=== PATIENT | male | born 1945 | race Caucasian/White ===

== ENCOUNTER 2020-02-18 19:34 | Inpatient (IN) | payer MEDICARE, OTHER ==
[2020-02-18] MEDS ORDERED: Ketorolac Tromethamine 30 MG/ML VIAL IVP PRN (21:44)
[2020-02-18] MEDS ORDERED: HumaLOG 300 UNITS/3 ML VIAL SC PRN ×2 (21:44)
[2020-02-18] MEDS ORDERED: Dextrose 5% in Water 1,000 ML IV PRN (21:44)
[2020-02-18] MEDS ORDERED: Ondansetron PF 4 MG/2 ML Vial IVP PRN (21:44)
[2020-02-18] MEDS ORDERED: Dextrose 50% Abboject 50 ML SYRINGE SLOW IVP PRN (21:44)
[2020-02-18] MEDS ORDERED: Labetalol HCl 100 MG/20 ML VIAL SLOW IVP PRN (21:44)
[2020-02-18] MEDS ORDERED: Acetaminophen 500 MG TAB PO PRN (21:44)
[2020-02-18] MEDS ORDERED: Bisacodyl 5 MG TAB PO PRN (21:44)
[2020-02-18] MEDS ORDERED: Ondansetron ODT 4 MG TAB PO PRN (21:44)
[2020-02-18] MEDS ORDERED: Senokot S 8.6-50 MG TAB PO PRN (21:44)
--- NOTE | 2020-02-18 22:43 | HP ---
PRIMARY CARE PROVIDER: Dr. Lazarus Momin in [place], [place], [facility]. CHIEF COMPLAINT: Abdominal pain. HISTORY OF PRESENT ILLNESS: This is a 74-year-old male, who presents to [facility] Emergency Department and transferred from [facility], where the patient was initially evaluated for 1-1/2 days of increasing abdominal distention mainly localizing to the left lower quadrant. The history is obtained after review of the electronic medical record in the emergency room as the patient is a poor historian and unable to provide a coherent history. The patient denied any specific dysuria or hematuria. The patient denied associated nausea, vomiting, or change to bowel habits. No prior history of surgical intervention. No change to appetite, unintentional weight loss, travel history, recent trauma injury, or family members with similar symptoms. The patient denied taking any home remedies for relief. The patient does admit recent bowel movements, but were not "normal bowel movements for him." In the emergency room, the patient underwent general evaluation including plain radiographic imaging of the abdomen in addition to CT of the abdomen and pelvis showing a distal left ureteral stone approximately 7 mm with obstructive uropathy. The patient was given IV fluids in addition to Zofran and Zosyn. Initial attempts were to transfer the patient to a hospital in [place] closer to his family and primary care provider. However, the receiving hospital did not have Urology Service. The patient was transferred to [facility] for further evaluation and neurological consultation. PAST MEDICAL HISTORY: 1. Diabetes mellitus type 2. 2. Parkinson disease with questionable dementia. 3. Hypertension. 4. Hyperlipidemia. PAST SURGICAL HISTORY: Status post bilateral tympanostomy. CURRENT MEDICATIONS: 1. Amlodipine 10 mg p.o. daily. 2. Glipizide 10 mg p.o. b.i.d. 3. Lisinopril 10 mg p.o. daily. 4. Metformin 1000 mg p.o. b.i.d. 5. Zocor 20 mg p.o. at bedtime. ALLERGIES: NO KNOWN DRUG ALLERGIES. FAMILY HISTORY: No inheritable diseases per family report. SOCIAL HISTORY: Resides in [place], [place]. . No current alcohol, tobacco, or illicit drug use. Limited mobility due to Parkinson disease. REVIEW OF SYSTEMS: CONSTITUTIONAL: Negative for weight loss or gain, ability to conduct usual activities. SKIN: Negative for rash, itching. EYES: Negative for double vision, pain. ENT/MOUTH: Negative for nose bleeding, neck stiffness, pain, tenderness. CARDIOVASCULAR: Negative for palpitations, dyspnea on exertion, orthopnea. RESPIRATORY: Negative for shortness of breath, wheezing, cough, hemoptysis, fever or night sweats. GASTROINTESTINAL: Negative for poor appetite, abdominal pain, heartburn, nausea, vomiting, constipation, or diarrhea. GENITOURINARY: Negative for urgency, frequency, dysuria, nocturia. MUSCULOSKELETAL: Negative for pain, swelling. NEUROLOGIC/PSYCHIATRIC: Negative for anxiety, depression. ALLERGY/IMMUNOLOGIC: Negative for skin rash, bleeding tendency. Otherwise, negative except as stated per HPI. PHYSICAL EXAMINATION: VITAL SIGNS: Blood pressure 135/71, pulse 89, respiratory rate 18, temperature 98.3 degrees Fahrenheit, O2 saturation 94% on room air. GENERAL APPEARANCE: This is a 74-year-old male, alert and responsive, in no acute distress. HEENT: Pupils are equal, round, reactive to light and accommodation. Extraocular muscles are intact. No scleral icterus. No conjunctival injection. Nares patent. OP is clear. Oral mucosa dry. NECK: Supple. No cervical adenopathy. No thyromegaly. No carotid bruits. No JVD appreciated. Cervical spine with full active and passive range of motion. No meningeal signs noted. CHEST: Lungs are clear to auscultation bilaterally. CARDIOVASCULAR: S1 and S2 without noted murmur, rub, or gallop. ABDOMEN: Obese with mild tenderness to palpation in the left lower quadrant and CVA distribution on the left. No rebound or guarding noted. No rigidity. EXTREMITIES: Warm and dry with fair turgor. No clubbing, cyanosis, or asymmetric edema appreciated. Pulses palpable distally at the dorsalis pedis, posterior tibial, and popliteal arteries bilaterally. Capillary refill less than 2 seconds. NEUROLOGIC: Resting tremor to bilateral upper extremities. Mild cogwheel rigidity of the elbows and wrists. Not observed ambulatory during this exam. Flat facies. PERTINENT LABORATORY AND X-RAY FINDINGS: Sodium 126, potassium 4.5, chloride 91, CO2 of 21, BUN 20, creatinine 1.26, estimated GFR 56, glucose 254, lactic acid level 1.7. LFTs within normal limits. Lipase 33. CBC showed a white blood cell count of 18, hemoglobin 15, hematocrit 44, platelet count 238 with 77% neutrophils. Urinalysis positive for glucose and small amount of blood. KUB of the abdomen dated 02/18/2020 showed a 7 x 3 mm calcification in the left hemipelvis. Left nephrolithiasis noted. Bowel gas pattern normal. Portable chest x-ray dated 02/18/2020, showed no acute cardiopulmonary process. CT of the abdomen and pelvis dated 02/18/2020, showed 7 mm calculus in the distal left ureter near the ureterovesical junction with obstructive uropathy and mild left hydroureteronephrosis. ASSESSMENT AND PLAN: 1. Left distal ureterovesical junction lithiasis. The patient will be admitted to the medical floor. We will continue intravenous normal saline at 125 mL/h. Continue Rocephin 2 g IV q.24 hours. Urine culture pending. Start Flomax 0.4 mg at bedtime. Consult Urology Service in the a.m. for any further recommendations and consideration for cystoscopy. 2. Obstructive uropathy with left-sided hydroureteronephrosis. Continue IV fluids as outlined previously. Serial creatinine monitoring. Flomax 0.4 mg p.o. at bedtime. 3. Diabetes mellitus type 2. Insulin sliding scale for reflexive coverage. Serial Accu-Cheks before meals and at bedtime. Confirm home diabetic regimen. ADA diet. 4. Hypertension. Resume home blood pressure regimen and monitor clinical response. 5. Chronic kidney disease stage 3. Continue IV fluids as outlined previously. Avoid nephrotoxic agents. Limit contrast exposure. Serial creatinine monitoring. 6. Prophylaxis. SCDs while in bed. Pepcid 20 mg p.o. b.i.d. PT evaluation for functional assessment. 7. Code status is full. Surrogate medical decision maker is the patient's spouse. Job ID: [id number] [facility]
[2020-02-18] MEDS: cefTRIAXone\\ROCEPHIN 2 GM in Sodium Chloride 0.9% 100 ML IVPB SCH (22:51)
[2020-02-18] MEDS: Sodium Chloride 0.9% 1,000 ML IV SCH (22:51)
[2020-02-19 05:52] LABS: #Eosinphils 0.1 thou/uL (0.0-0.7); #Lymphocytes 2.1 thou/uL (1.20-3.40); #Neutrophils 6.6 thou/uL (1.40-6.50); %Basophils 0.1 % (0.0-1.0); %Eosinophils 0.8 % (0.0-10.0); %Lymphocytes 21.5 % (21.0-51.0); %Monocytes 9.8 % (0.0-10.0); %Neutrophils 67.9 % (42.0-75.0); Hemoglobin 13.3 g/dL (14.0-18.0); Mean Corpuscular HGB CONC 34.6 g/dL (32.0-36.0); Mean Corpuscular Hemoglobin 32.2 pg (27.0-31.0); Mean Platelet Volume 7.2 fL (7.4-10.4); Platelet Count 159 thou/uL (130-400); RBC Distribution Width 12.7 % (11.5-14.5); Red Blood Cell (RBC) Count 4.14 mill/uL (4.70-6.10); White Blood Cell (WBC) Count 9.8 thou/uL (4.8-10.8)
[2020-02-19 06:16] LABS: Anion Gap 13 mmol/L (10-20); BUN (Urea Nitrogen) 15 mg/dL (8.4-25.7); Calc. Creatinine Clearance 64 mL/min (70-130); Calcium 7.8 mg/dL (7.8-10.44); Carbon Dioxide 18 mmol/L (23-31); Chloride 107 mmol/L (98-107); Estimated GFR-MDRD 67; Glucose 111 mg/dL (83-110); Potassium 3.9 mmol/L (3.5-5.1); Sodium 134 mmol/L (136-145)
[2020-02-19] MEDS: Sodium Chloride 0.9% 1,000 ML IV SCH ×3 (06:21→21:59)
--- NOTE | 2020-02-19 06:33 | CON ---
DATE OF CONSULTATION: 02/19/2020 REQUESTING PHYSICIAN: Shane Ramos MD REASON FOR CONSULTATION: Left ureteral stone. HISTORY OF PRESENT ILLNESS: Mr. Abdullahi is a 74-year-old male, who presented to [facility] Department as a transfer from [place] [facility], where the patient was seen for increasing pain and abdominal distention over the past one and a half days. The patient is a poor historian. The majority of the history is obtained from the chart. The patient began developing abdominal pain over the past couple of days. A CT of the abdomen and pelvis was performed in [place], which demonstrates a 7 mm distal left ureteral calculus with left hydroureteronephrosis as well as a distended bladder. The [place] emergency department evidently spoke with his family in the [place] area and they tried to transfer the patient there but given the fact that there was no urologic coverage there, he was transferred to [place] and admitted by the Medicine Service. Currently, the patient states his pain is controlled. He denies any fever. No prior episodes of urolithiasis. He has no other complaints. PAST MEDICAL HISTORY: 1. Type 2 diabetes. 2. Parkinson with questionable dementia. 3. Hypertension. 4. Hyperlipidemia. PAST SURGICAL HISTORY: Ear tubes. FAMILY HISTORY: Noncontributory. SOCIAL HISTORY: Lives in [place], [place]. He is . No alcohol, tobacco, or illicit drugs. ALLERGIES: NO KNOWN DRUG ALLERGIES. REVIEW OF SYSTEMS: This was performed, however, accuracy is questionable. He declines everything. PHYSICAL EXAMINATION: VITAL SIGNS: Blood pressure 135/68, pulse 87, respirations 16, temperature 98.3, oxygen saturation 94% on room air. GENERAL: He is alert and oriented, in no apparent distress. HEENT: Normocephalic, atraumatic. NECK: Supple. No masses or lymphadenopathy. CARDIOVASCULAR: Regular rate and rhythm. PULMONARY: Breathing unlabored. ABDOMEN: Soft, mild suprapubic tenderness to palpation and left lower quadrant tenderness to palpation. No rebound or guarding. No masses or organomegaly. EXTREMITIES: Warm and well perfused. No edema. NEUROLOGIC: Resting tremor in bilateral upper extremities. Flat affect. LABORATORY DATA: Sodium 126, potassium 4.5, chloride 91, bicarb 21, BUN 20, creatinine 1.26. Lactate 1.7. White blood cell count 18, hemoglobin 15, hematocrit 44, platelet 238. RADIOLOGY DATA: CT of the abdomen and pelvis demonstrated a 7 mm distal left ureteral stone with left hydroureteronephrosis as well as a distended bladder. ASSESSMENT: A 74-year-old male with left-sided abdominal pain secondary to a 7 mm distal left ureteral stone with left hydroureteronephrosis and questionable incomplete bladder emptying/urinary retention. PLAN: I reviewed the natural history and clinical implications of ureteral stones with the patient in detail. I explained his approximate 50% chance of spontaneously passing a stone of this size. The patient had significant pain. He is a poor historian. He had a very distended bladder on CT scan and the question of chronic incomplete bladder emptying, likely secondary to bladder outlet obstruction is in question. The patient denies any bothersome lower urinary tract symptoms, although again he is a poor historian. After indications/risks/benefits/alternatives/possible outcomes were discussed with the patient in detail, he elects to proceed with a left ureteral stent placement and all indicated procedures. If the patient has an overly distended bladder at the time of this procedure, a Veloz catheter will be placed and should likely remain in place until he can have further workup of this. N.p.o. until this procedure can be performed later today. Job ID: [id number]
[2020-02-19] MEDS: Famotidine 20 MG TAB PO SCH ×2 (07:50→19:56)
[2020-02-19] MEDS ORDERED: PROPOFOL 200 MG/20 ML VIAL ONE (09:23)
[2020-02-19] MEDS ORDERED: Ondansetron PF 4 MG/2 ML Vial ONE (09:23)
[2020-02-19] MEDS ORDERED: EPHEDRINE 25 MG/5 ML SYRINGE ONE (09:23)
[2020-02-19] MEDS ORDERED: Lidocaine 1% PF 5 ML VIAL ONE (09:23)
[2020-02-19 12:23] LABS: SARS-CoV-2 MS2 Positive; SARS-CoV-2 N Gene Negative; SARS-CoV-2 S Gene Negative; SARS-CoV-2 by NAA Not Detected (NotDetected); SARS-CoV-2 orf1ab Negative
[2020-02-19] MEDS ORDERED: Iothalamate Meglumine 60% 50 ML VIAL FS ONE (16:41)
[2020-02-19] MEDS ORDERED: Fentanyl 100 MCG/2 ML VIAL ONE (16:46)
[2020-02-19] MEDS ORDERED: Promethazine HCl 25 MG/ML VIAL IM PRN (17:09)
[2020-02-19] MEDS ORDERED: Ondansetron HCl/PF 4 MG/2 ML Vial IVP PRN (17:09)
[2020-02-19] MEDS ORDERED: Promethazine HCl 25 MG/ML VIAL SLOW IVP PRN (17:09)
--- NOTE | 2020-02-19 18:00 | RAD ---
Radiograph intravenous urogram 5 views: 02/19/2020 HISTORY: 74-year-old male with left obstructive uropathy due to far distal left ureteral calculus. COMPARISON: KUB of 02/18/2020 FINDINGS: Pig Machine Crane Operator view demonstrates again a 7 mm calculus in the left hemipelvis in the far left distal ureter. T here is also an approximately 7 mm calculus in the left upper quadrant consistent with renal calculus. Subsequently, there is catheterization and wire placement up the ureter with wire in left u pper pole calyx. Next, contrast injection fills nondilated left renal collecting system. Next, manipulation of wire. Next, a double pigtail left ureteral stent is visualized. No residual contrast in the collecting system. IMPRESSION: 1.) Ureterolithiasis consisting of distal left ureteral calculus, near ureterovesical junction. 2) nephrolithiasis consisting of left renal calculus. 3) interval placement of left ureteral stent.
--- NOTE | 2020-02-19 18:19 | PDOC.EVN ---
Event Note - Event Note Event Note: Patient was in Surgery when I made rounds to see him. Vital signs have been stable, and no concerns from the nursing staff.
[2020-02-19] MEDS ORDERED: Tamsulosin HCl 0.4 MG CAP PO SCH (21:00)
[2020-02-19] MEDS: cefTRIAXone\\ROCEPHIN 2 GM in Sodium Chloride 0.9% 100 ML IVPB SCH (21:59)
[2020-02-20] MEDS: Sodium Chloride 0.9% 1,000 ML IV SCH ×2 (06:00→14:39)
--- NOTE | 2020-02-20 06:09 | PRG ---
DATE OF SERVICE: 02/20/2020 SUBJECTIVE: The patient is feeling well. His lower back and left abdominal pain have resolved, status post left ureteral stent placement. No nausea or vomiting. No complaints. OBJECTIVE: VITAL SIGNS: Temperature 98.2, pulse 83, respirations 18, ox saturation 93% on room air, blood pressure 116/61. GENERAL: He is awake and alert. No apparent distress. CARDIOVASCULAR: Regular rhythm. PULMONARY: Breathing unlabored. ABDOMEN: Soft, nontender/nondistended. No masses or organomegaly. No suprapubic tenderness to palpation. No CVA tenderness. EXTREMITIES: Warm, well perfused. No edema. NEUROLOGIC: No focal deficits. ASSESSMENT: A 74-year-old male with a left ureteral stone. Postoperative day #1 status post left ureteral stent placement. PLAN: The patient's pain has improved from a urologic standpoint. He can be discharged home once stable medically. He will be scheduled as an outpatient for definitive management of this stone by ureteroscopy with laser lithotripsy. Job ID: [id number]
[2020-02-20] MEDS: Famotidine 20 MG TAB PO SCH (08:13)
--- NOTE | 2020-02-20 08:13 | OP ---
DATE OF PROCEDURE: 02/19/2020 GRADUATE STUDENT INSTRUCTOR: None. PREPROCEDURE DIAGNOSES: 1. Left ureteral stone. 2. Left hydroureteronephrosis. POSTPROCEDURE DIAGNOSES: 1. Left ureteral stone. 2. Left hydroureteronephrosis. PROCEDURE: Cystoscopy with placement of 6-Lithuanian x 26 cm double-J left ureteral stent. ANESTHESIA: LMA anesthesia. COMPLICATIONS: None. FLUIDS: See Anesthesia record. BLOOD LOSS: Minimal. SPECIMENS: None. POSTPROCEDURE STATUS: Satisfactory. INDICATIONS FOR PROCEDURE: Mr. Abdullahi is a 74-year-old male, who presented with 3-day history of worsening lower and left abdominal pain. The patient has a 7 mm distal left ureteral calculus with significant left hydroureteronephrosis and left perinephric stranding. After indications/risks/benefits/alternatives/possible outcomes were discussed with the patient's family, they elected to proceed with left ureteral stent placement and all indicated procedures. DESCRIPTION OF PROCEDURE: The patient was taken to the operating room and after successful induction of LMA anesthesia, he was placed in the dorsal lithotomy position. His genitalia were prepped and draped in usual sterile fashion. A time-out was performed,. following which a 21-Lithuanian rigid cystourethroscope was inserted in the patient's urethra, advanced into the bladder. Urethra was normal. He had bilobar enlargement of his prostate. Bladder mucosa was normal. Had minimal trabeculation. Ureteral orifices were in the normal orthotopic location. Left ureteral orifice was identified. It was cannulated with a 5-Lithuanian open-ended ureteral catheter with a 0.035 inch angled tip Glidewire placed through it. We cannulated the left ureteral orifice and advanced the wire all the way up into the left renal pelvis. The stone could be seen fluoroscopically within the distal portion of the ureter. There was also a nonobstructing left ureteral stone. The open-ended catheter was placed up to the level of the left ureteropelvic junction and the wire was removed. Retrograde pyelogram was performed with a 50:50 mix of [place] and sterile water and this demonstrated [id number] left hydroureteronephrosis. We replaced the wire and removed the open-ended catheter. Over the wire, a 6-Lithuanian x 26 cm double-J ureteral stent was placed. Upon wire removal, a good curl was achieved proximally within the left renal pelvis and distally within the bladder. The patient's bladder was drained. He tolerated the procedure well, was awoken from anesthesia and transferred to the PACU in satisfactory condition. PLAN: Left ureteral stent has been placed. The patient will require definitive management of this stone. This will be scheduled as an outpatient. From urologic standpoint, once the patient's other medical issues have resolved, he can be discharged home and have followup scheduled with Urology. Job ID: [id number]
--- NOTE | 2020-02-20 12:21 | PDOC.HOSPP ---
- Subjective Encounter Date: 02/20/20 Encounter Time: 12:19 Subjective: Mr. Abdullahi was seen today in follow-up of nephrolithiasis, and obstructive uropathy. He does not have any complaints this morning. He denies abdominal or flank pain. - Objective Vital Signs & Weight: Vital Signs (12 hours) Temp Pulse Resp BP Pulse Ox 02/20/20 08:15 94 L 02/20/20 07:41 98.2 F 70 18 121/69 94 L 02/20/20 04:00 98.2 F 83 20 116/61 93 L Weight Weight 171 lb 14.4 oz I&O: 02/19/20 02/20/20 02/21/20 06:59 06:59 06:59 Intake Total 1000 1720 Output Total 1100 950 Balance -100 770 Result Diagrams: 02/19/20 05:35 02/19/20 05:35 Additional Labs: Accuchecks 02/20/20 02/19/20 02/19/20 04:10 20:34 15:35 POC Glucose 150 H 125 H 107 H 02/18/20 21:15 POC Glucose 222 H Hospitalist ROS - Medication Medications: Active Medications Generic Name Dose Route Start Last Admin Trade Name Freq PRN Reason Stop Dose Admin Famotidine 20 mg 02/19/20 09:00 02/20/20 08:13 Famotidine 20 Mg Tab PO 20 mg BID ALISSA Administration Sodium Chloride 1,000 mls @ 125 mls/hr 02/18/20 22:00 02/20/20 06:00 Normal Saline 0.9% IV 1,000 mls .Q8H ALISSA Administration Ceftriaxone Sodium 2 gm/ 100 mls @ 200 mls/hr 02/18/20 22:00 02/19/20 21:59 Sodium Chloride IVPB 100 mls 2200 ALISSA Administration Insulin Human Lispro 0 units 02/18/20 21:44 02/18/20 22:52 Humalog 300 Units/3 Ml Vial SC 2 unit .BEDTIME SLIDING SC PRN Administration Bedtime Correctional Scale Tamsulosin HCl 0.4 mg 02/19/20 21:00 02/19/20 19:56 Tamsulosin Hcl 0.4 Mg Cap PO 0.4 mg HS ALISSA Administration - Exam Eye: PERRL, anicteric sclera Heart: RRR, no murmur, no gallops, no rubs, normal peripheral pulses Respiratory: CTAB, no wheezes, no rales, no ronchi, normal chest expansion, no tachypnea Gastrointestinal: soft, non-tender, non-distended, normal bowel sounds, no palpable masses, no hepatomegaly Extremities: no cyanosis, no edema Hosp A/P (1) Left nephrolithiasis Code(s): N20.0 - CALCULUS OF KIDNEY Status: Acute (2) Obstructive uropathy Code(s): N13.9 - OBSTRUCTIVE AND REFLUX UROPATHY, UNSPECIFIED Status: Acute (3) Hypertension Code(s): I10 - ESSENTIAL (PRIMARY) HYPERTENSION Status: Chronic (4) Diabetes mellitus type 2 in nonobese Code(s): E11.9 - TYPE 2 DIABETES MELLITUS WITHOUT COMPLICATIONS Status: Chroni c - Plan * Nephrolithiasis with Obstructvie Uropathy- He is s/p ureteral STENT placement * He has been cleared for discharge * HTN- blood pressure is stable * DM- blood glucose is stable * Stable for discharge home
[2020-02-20 12:36] VITALS: BP 127/73; TEMP 98.1
[2020-02-20 14:01] VITALS: BMI 26.9
--- NOTE | 2020-02-21 02:38 | DIS ---
DATE OF ADMISSION: 02/18/2020 DATE OF DISCHARGE: 02/20/2020 DISCHARGE DISPOSITION: Home. DISCHARGE DIAGNOSES: 1. Left nephrolithiasis. 2. Obstructive uropathy. 3. Diabetes mellitus type 2. 4. Parkinson disease. 5. Hypertension. 6. Hyperlipidemia. DISCHARGE MEDICATIONS: Include: 1. Omnicef 300 mg p.o. b.i.d. 2. Zocor 20 mg p.o. at bedtime. 3. Amlodipine 10 mg p.o. daily. 4. Lisinopril 10 mg p.o. daily. 5. Metformin 1000 mg p.o. b.i.d. 6. Glipizide 10 mg p.o. b.i.d. IMAGING DONE DURING THE HOSPITAL STAY: The patient had a retrograde pyelogram in which there was evidence of ureterolithiasis consisting of distal left ureteral calculus near the ureterovesical junction and interval placement of the left ureteral stent. The patient had a cystoscopy with placement of a double-J left ureteral stent. CODE STATUS: Full code. ALLERGIES: NO KNOWN DRUG ALLERGIES. HOSPITAL COURSE: Mr. Abdullahi is a 74-year-old gentleman, who was admitted to the hospital with complaints of abdominal pain and left lower quadrant pain. He was found to have a ureteral stone. Urology was consulted and the patient ultimately had a left double-J ureteral stent placed. He had good urine flow following this. The definitive treatment for the ureteral stone will need to be done in the outpatient setting. He will be placed on empiric antibiotics in the interim. He is to continue on Flomax as well and to call Dr. Bedolla's office to determine when would be the best time for followup. It is anticipated that he will likely be seeing him within the next several days to a week. Job ID: [id number]
[2020-02-24] MEDS ORDERED: Ibuprofen 200 MG TAB PO PRN (03:00)
== END 2020-02-20 16:18 | disposition home or self-care (01) | DRG 661 ==
LOC: ERS 19:34 → T4-B 20:27
PROVIDERS: ADMIT Student in an Organized Health Care Education/Training Program; ATTEND Student in an Organized Health Care Education/Training Program
PROC: 0T778DZ Dilation of Left Ureter with Intraluminal Device, Via Natural or Artificial Opening Endoscopic (ICD-10-PCS; principal; 2020-02-19)
PROC: BT1F1ZZ Fluoroscopy of Left Kidney, Ureter and Bladder using Low Osmolar Contrast (ICD-10-PCS; 2020-02-19)
DX: N13.2 Hydronephrosis with renal and ureteral calculous obstruction (principal); G20 Parkinson's disease; F02.80 Dementia in other diseases classified elsewhere, unspecified severity, without behavioral disturbance, psychotic disturbance, mood disturbance, and anxiety; E78.5 Hyperlipidemia, unspecified; Z20.828 Contact with and (suspected) exposure to other viral communicable diseases; E11.22 Type 2 diabetes mellitus with diabetic chronic kidney disease; I12.9 Hypertensive chronic kidney disease with stage 1 through stage 4 chronic kidney disease, or unspecified chronic kidney disease; N18.3 Chronic kidney disease, stage 3 (moderate); Z79.4 Long term (current) use of insulin
CPT/HCPCS: 36415; 36416; 74420; 80048; 83605; 85025; 87635; 99285; J0696; J2405; J2704; J3010; J3490; U0003

== ENCOUNTER 2022-06-27 21:02 | Inpatient (IN) | payer MEDICARE ==
[2022-06-27 22:56] VITALS: BMI 24.9
[2022-06-27] MEDS ORDERED: Ondansetron ODT 4 MG TAB PO PRN (23:30)
[2022-06-27] MEDS ORDERED: Ondansetron PF 4 MG/2 ML Vial IVP PRN (23:30)
[2022-06-27] MEDS ORDERED: Acetaminophen 650 MG Suppository PR PRN (23:30)
[2022-06-28 06:47] LABS: #Basophils 0.1 thou/uL (0.0-0.2); #Lymphocytes 2.6 thou/uL (1.20-3.40); #Monocytes 0.7 thou/uL (0.11-0.59); #Neutrophils 2.6 thou/uL (1.40-6.50); %Basophils 1.4 % (0.0-1.0); %Eosinophils 0.6 % (0.0-10.0); %Lymphocytes 43.3 % (21.0-51.0); %Monocytes 12.1 % (0.0-10.0); %Neutrophils 42.7 % (42.0-75.0); Hemoglobin 13.2 g/dL (14.0-18.0); Mean Corpuscular Hemoglobin 31.2 pg (27.0-31.0); Mean Corpuscular Volume 91.8 fl (78.0-98.0); Mean Platelet Volume 7.1 fL (7.4-10.4); Platelet Count 158 10x3/uL (130-400); RBC Distribution Width 13.1 % (11.5-14.5); Red Blood Cell (RBC) Count 4.23 mill/uL (4.70-6.10); White Blood Cell (WBC) Count 6.1 10x3/uL (4.8-10.8)
[2022-06-28 07:06] LABS: Anion Gap 12 mmol/L (10-20); BUN (Urea Nitrogen) 14 mg/dL (8.4-25.7); Calc. Creatinine Clearance 84 mL/min (70-130); Calcium 8.6 mg/dL (7.8-10.44); Carbon Dioxide 25 mmol/L (23-31); Chloride 103 mmol/L (98-107); Estimated GFR 92; Glucose 108 mg/dL (83-110); Potassium 3.4 mmol/L (3.5-5.1); Sodium 137 mmol/L (136-145)
[2022-06-28] MEDS: Atorvastatin Calcium 10 MG TAB PO SCH (21:31)
[2022-06-28] MEDS: glipiZIDE 10 MG TAB PO SCH (21:31)
[2022-06-29] MEDS: HumaLOG 300 UNITS/3 ML VIAL SC PRN ×3 (05:21→17:38)
[2022-06-29 06:37] LABS: #Lymphocytes 2.6 thou/uL (1.20-3.40); #Monocytes 0.7 thou/uL (0.11-0.59); #Neutrophils 3.1 thou/uL (1.40-6.50); %Basophils 0.4 % (0.0-1.0); %Eosinophils 0.3 % (0.0-10.0); %Lymphocytes 40.1 % (21.0-51.0); %Monocytes 11.1 % (0.0-10.0); %Neutrophils 48.2 % (42.0-75.0); Hemoglobin 14.3 g/dL (14.0-18.0); Mean Corpuscular HGB CONC 34.1 g/dL (32.0-36.0); Mean Corpuscular Hemoglobin 31.1 pg (27.0-31.0); Mean Platelet Volume 7.3 fL (7.4-10.4); Platelet Count 157 10x3/uL (130-400); Red Blood Cell (RBC) Count 4.59 mill/uL (4.70-6.10); White Blood Cell (WBC) Count 6.4 10x3/uL (4.8-10.8)
[2022-06-29 07:04] LABS: Anion Gap 14 mmol/L (10-20); BUN (Urea Nitrogen) 12 mg/dL (8.4-25.7); Calc. Creatinine Clearance 83 mL/min (70-130); Carbon Dioxide 23 mmol/L (23-31); Chloride 102 mmol/L (98-107); Estimated GFR 92; Glucose 188 mg/dL (83-110); Potassium 3.5 mmol/L (3.5-5.1); Sodium 135 mmol/L (136-145)
[2022-06-29] MEDS: metFORMIN 500 MG TAB PO SCH ×2 (09:24→17:38)
[2022-06-29] MEDS: Aspirin 81 mg Enteric Coated Tablet PO SCH (09:25)
[2022-06-29] MEDS: glipiZIDE 10 MG TAB PO SCH ×2 (09:25→21:35)
[2022-06-29] MEDS: Lisinopril 10 MG TAB PO SCH (09:25)
[2022-06-29] MEDS: Amlodipine 10 MG TAB PO SCH (09:26)
[2022-06-29] MEDS: Atorvastatin Calcium 10 MG TAB PO SCH (21:35)
[2022-06-30] MEDS: HumaLOG 300 UNITS/3 ML VIAL SC PRN ×3 (05:30→18:27)
[2022-06-30 07:11] LABS: #Eosinphils 0.1 thou/uL (0.0-0.7); #Monocytes 0.8 thou/uL (0.11-0.59); %Basophils 0.1 % (0.0-1.0); %Eosinophils 0.9 % (0.0-10.0); %Lymphocytes 34.2 % (21.0-51.0); %Monocytes 13.9 % (0.0-10.0); %Neutrophils 50.9 % (42.0-75.0); Hemoglobin 13.5 g/dL (14.0-18.0); Mean Corpuscular HGB CONC 32.9 g/dL (32.0-36.0); Mean Corpuscular Hemoglobin 30.6 pg (27.0-31.0); Mean Corpuscular Volume 92.8 fl (78.0-98.0); Mean Platelet Volume 7.4 fL (7.4-10.4); Platelet Count 150 10x3/uL (130-400)
[2022-06-30 07:18] LABS: Anion Gap 12 mmol/L (10-20); BUN (Urea Nitrogen) 11 mg/dL (8.4-25.7); Calc. Creatinine Clearance 87 mL/min (70-130); Calcium 8.5 mg/dL (7.8-10.44); Carbon Dioxide 25 mmol/L (23-31); Chloride 103 mmol/L (98-107); Estimated GFR 93; Glucose 147 mg/dL (83-110); Potassium 3.2 mmol/L (3.5-5.1); Sodium 137 mmol/L (136-145)
[2022-06-30] MEDS: Lisinopril 10 MG TAB PO SCH (08:45)
[2022-06-30] MEDS: metFORMIN 500 MG TAB PO SCH ×2 (08:45→18:27)
[2022-06-30] MEDS: glipiZIDE 10 MG TAB PO SCH ×2 (08:46→19:44)
[2022-06-30] MEDS: Ascorbic Acid 500 mg Chewable Tablet PO SCH (08:46)
[2022-06-30] MEDS: Zinc Sulfate 220 MG CAP PO SCH (08:46)
[2022-06-30] MEDS: Amlodipine 10 MG TAB PO SCH (08:47)
[2022-06-30] MEDS: Aspirin 81 mg Enteric Coated Tablet PO SCH (08:47)
[2022-06-30] MEDS: Atorvastatin Calcium 10 MG TAB PO SCH (19:44)
[2022-07-01] MEDS: HumaLOG 300 UNITS/3 ML VIAL SC PRN (05:50)
[2022-07-01 07:34] LABS: #Eosinphils 0.2 thou/uL (0.0-0.7); #Lymphocytes 2.4 thou/uL (1.20-3.40); #Monocytes 0.7 thou/uL (0.11-0.59); #Neutrophils 4.5 thou/uL (1.40-6.50); %Basophils 0.1 % (0.0-1.0); %Lymphocytes 30.3 % (21.0-51.0); %Monocytes 9.2 % (0.0-10.0); %Neutrophils 58.3 % (42.0-75.0); Hemoglobin 13.9 g/dL (14.0-18.0); Mean Corpuscular HGB CONC 32.7 g/dL (32.0-36.0); Mean Corpuscular Volume 91.9 fl (78.0-98.0); Mean Platelet Volume 7.6 fL (7.4-10.4); Platelet Count 175 10x3/uL (130-400); RBC Distribution Width 13.1 % (11.5-14.5); Red Blood Cell (RBC) Count 4.62 mill/uL (4.70-6.10); White Blood Cell (WBC) Count 7.8 10x3/uL (4.8-10.8)
[2022-07-01 07:51] LABS: Anion Gap 13 mmol/L (10-20); BUN (Urea Nitrogen) 13 mg/dL (8.4-25.7); Calc. Creatinine Clearance 88 mL/min (70-130); Calcium 8.8 mg/dL (7.8-10.44); Carbon Dioxide 25 mmol/L (23-31); Chloride 103 mmol/L (98-107); Estimated GFR 93; Glucose 152 mg/dL (83-110); Potassium 3.6 mmol/L (3.5-5.1); Sodium 137 mmol/L (136-145)
[2022-07-01] MEDS: Aspirin 81 mg Enteric Coated Tablet PO SCH (09:00)
[2022-07-01] MEDS: Lisinopril 10 MG TAB PO SCH (09:00)
[2022-07-01] MEDS: glipiZIDE 10 MG TAB PO SCH ×2 (09:00→20:16)
[2022-07-01] MEDS: metFORMIN 500 MG TAB PO SCH ×2 (09:00→17:47)
[2022-07-01] MEDS: Ascorbic Acid 500 mg Chewable Tablet PO SCH (09:00)
[2022-07-01] MEDS: Zinc Sulfate 220 MG CAP PO SCH (09:00)
[2022-07-01] MEDS: Amlodipine 10 MG TAB PO SCH (09:00)
[2022-07-01] MEDS: Atorvastatin Calcium 10 MG TAB PO SCH (20:16)
[2022-07-02 08:02] LABS: #Eosinphils 0.2 thou/uL (0.0-0.7); #Lymphocytes 2.6 thou/uL (1.20-3.40); #Monocytes 0.7 thou/uL (0.11-0.59); #Neutrophils 6.5 thou/uL (1.40-6.50); %Basophils 0.3 % (0.0-1.0); %Eosinophils 2.1 % (0.0-10.0); %Lymphocytes 25.5 % (21.0-51.0); %Monocytes 7.1 % (0.0-10.0); Hemoglobin 13.3 g/dL (14.0-18.0); Mean Corpuscular HGB CONC 32.4 g/dL (32.0-36.0); Mean Corpuscular Volume 92.6 fl (78.0-98.0); Mean Platelet Volume 7.3 fL (7.4-10.4); Platelet Count 216 10x3/uL (130-400); RBC Distribution Width 13.1 % (11.5-14.5); Red Blood Cell (RBC) Count 4.45 mill/uL (4.70-6.10)
[2022-07-02 08:32] LABS: Anion Gap 13 mmol/L (10-20); BUN (Urea Nitrogen) 20 mg/dL (8.4-25.7); Calc. Creatinine Clearance 85 mL/min (70-130); Calcium 8.8 mg/dL (7.8-10.44); Carbon Dioxide 24 mmol/L (23-31); Chloride 103 mmol/L (98-107); Estimated GFR 92; Glucose 162 mg/dL (83-110); Potassium 3.8 mmol/L (3.5-5.1); Sodium 136 mmol/L (136-145)
[2022-07-02] MEDS: Aspirin 81 mg Enteric Coated Tablet PO SCH (08:45)
[2022-07-02] MEDS: glipiZIDE 10 MG TAB PO SCH ×2 (08:45→20:06)
[2022-07-02] MEDS: Zinc Sulfate 220 MG CAP PO SCH (08:45)
[2022-07-02] MEDS: metFORMIN 500 MG TAB PO SCH ×4 (08:45→18:27)
[2022-07-02] MEDS: Ascorbic Acid 500 mg Chewable Tablet PO SCH (08:45)
[2022-07-02] MEDS: Amlodipine 10 MG TAB PO SCH (10:47)
[2022-07-02] MEDS: Lisinopril 10 MG TAB PO SCH (10:47)
[2022-07-02] MEDS: Atorvastatin Calcium 10 MG TAB PO SCH (20:06)
[2022-07-03 07:01] LABS: #Eosinphils 0.3 thou/uL (0.0-0.7); #Lymphocytes 2.5 thou/uL (1.20-3.40); #Monocytes 0.9 thou/uL (0.11-0.59); #Neutrophils 6.6 thou/uL (1.40-6.50); %Basophils 0.2 % (0.0-1.0); %Eosinophils 2.9 % (0.0-10.0); %Lymphocytes 24.4 % (21.0-51.0); %Monocytes 8.4 % (0.0-10.0); %Neutrophils 64.2 % (42.0-75.0); Hemoglobin 12.9 g/dL (14.0-18.0); Mean Corpuscular HGB CONC 33.8 g/dL (32.0-36.0); Mean Corpuscular Hemoglobin 31.2 pg (27.0-31.0); Mean Corpuscular Volume 92.4 fl (78.0-98.0); Mean Platelet Volume 7.3 fL (7.4-10.4); Platelet Count 231 10x3/uL (130-400); RBC Distribution Width 13.1 % (11.5-14.5); Red Blood Cell (RBC) Count 4.13 mill/uL (4.70-6.10); White Blood Cell (WBC) Count 10.3 10x3/uL (4.8-10.8)
[2022-07-03 07:14] LABS: Anion Gap 9 mmol/L (10-20); BUN (Urea Nitrogen) 20 mg/dL (8.4-25.7); Calc. Creatinine Clearance 84 mL/min (70-130); Calcium 8.6 mg/dL (7.8-10.44); Carbon Dioxide 27 mmol/L (23-31); Chloride 103 mmol/L (98-107); Estimated GFR 92; Glucose 162 mg/dL (83-110); Sodium 135 mmol/L (136-145)
[2022-07-03] MEDS: Ascorbic Acid 500 mg Chewable Tablet PO SCH (10:02)
[2022-07-03] MEDS: glipiZIDE 10 MG TAB PO SCH ×2 (10:03→20:11)
[2022-07-03] MEDS: Lisinopril 10 MG TAB PO SCH (10:03)
[2022-07-03] MEDS: Zinc Sulfate 220 MG CAP PO SCH (10:03)
[2022-07-03] MEDS: Aspirin 81 mg Enteric Coated Tablet PO SCH (10:03)
[2022-07-03] MEDS: metFORMIN 500 MG TAB PO SCH ×2 (10:03→17:40)
[2022-07-03] MEDS: Amlodipine 10 MG TAB PO SCH (10:03)
[2022-07-03] MEDS: HumaLOG 300 UNITS/3 ML VIAL SC PRN (12:03)
[2022-07-03] MEDS: Acetaminophen 325 MG TAB PO PRN (20:11)
[2022-07-03] MEDS: Atorvastatin Calcium 10 MG TAB PO SCH (20:11)
[2022-07-04] MEDS: metFORMIN 500 MG TAB PO SCH ×2 (09:03→18:09)
[2022-07-04] MEDS: Aspirin 81 mg Enteric Coated Tablet PO SCH (09:03)
[2022-07-04] MEDS: Lisinopril 10 MG TAB PO SCH (09:03)
[2022-07-04] MEDS: Zinc Sulfate 220 MG CAP PO SCH (09:03)
[2022-07-04] MEDS: Ascorbic Acid 500 mg Chewable Tablet PO SCH (09:03)
[2022-07-04] MEDS: Amlodipine 10 MG TAB PO SCH (09:03)
[2022-07-04] MEDS: glipiZIDE 10 MG TAB PO SCH ×2 (09:04→19:54)
[2022-07-04] MEDS: Atorvastatin Calcium 10 MG TAB PO SCH (19:54)
[2022-07-05] MEDS: Aspirin 81 mg Enteric Coated Tablet PO SCH (08:47)
[2022-07-05] MEDS: glipiZIDE 10 MG TAB PO SCH ×2 (08:47→20:59)
[2022-07-05] MEDS: Ascorbic Acid 500 mg Chewable Tablet PO SCH (08:47)
[2022-07-05] MEDS: metFORMIN 500 MG TAB PO SCH ×2 (08:47→19:26)
[2022-07-05] MEDS: Lisinopril 10 MG TAB PO SCH (08:47)
[2022-07-05] MEDS: Zinc Sulfate 220 MG CAP PO SCH (08:47)
[2022-07-05] MEDS: Amlodipine 10 MG TAB PO SCH (08:47)
[2022-07-05] MEDS: HumaLOG 300 UNITS/3 ML VIAL SC PRN (20:59)
[2022-07-05] MEDS: Acetaminophen 325 MG TAB PO PRN (20:59)
[2022-07-05] MEDS: Atorvastatin Calcium 10 MG TAB PO SCH (20:59)
[2022-07-06] MEDS: Amlodipine 10 MG TAB PO SCH (08:25)
[2022-07-06] MEDS: glipiZIDE 10 MG TAB PO SCH ×2 (08:25→20:38)
[2022-07-06] MEDS: metFORMIN 500 MG TAB PO SCH ×2 (08:25→16:50)
[2022-07-06] MEDS: Zinc Sulfate 220 MG CAP PO SCH (08:26)
[2022-07-06] MEDS: Aspirin 81 mg Enteric Coated Tablet PO SCH (08:26)
[2022-07-06] MEDS: Lisinopril 10 MG TAB PO SCH (08:26)
[2022-07-06] MEDS: Ascorbic Acid 500 mg Chewable Tablet PO SCH (08:26)
[2022-07-06] MEDS: HumaLOG 300 UNITS/3 ML VIAL SC PRN (12:00)
[2022-07-06] MEDS: Atorvastatin Calcium 10 MG TAB PO SCH (20:38)
[2022-07-06] MEDS: Acetaminophen 325 MG TAB PO PRN (20:38)
[2022-07-07] MEDS: glipiZIDE 10 MG TAB PO SCH ×2 (08:21→20:43)
[2022-07-07] MEDS: Aspirin 81 mg Enteric Coated Tablet PO SCH (08:21)
[2022-07-07] MEDS: Ascorbic Acid 500 mg Chewable Tablet PO SCH (08:21)
[2022-07-07] MEDS: Lisinopril 10 MG TAB PO SCH (08:22)
[2022-07-07] MEDS: Zinc Sulfate 220 MG CAP PO SCH (08:23)
[2022-07-07] MEDS: Amlodipine 10 MG TAB PO SCH (08:23)
[2022-07-07] MEDS: metFORMIN 500 MG TAB PO SCH ×2 (08:23→17:34)
[2022-07-07] MEDS: Atorvastatin Calcium 10 MG TAB PO SCH (20:43)
[2022-07-07] MEDS: Acetaminophen 325 MG TAB PO PRN (20:53)
[2022-07-07] MEDS: HumaLOG 300 UNITS/3 ML VIAL SC PRN (21:30)
[2022-07-08 06:29] LABS: Hemoglobin 13.5 g/dL (14.0-18.0); Mean Corpuscular HGB CONC 33.5 g/dL (32.0-36.0); Mean Corpuscular Volume 92.4 fl (78.0-98.0); Mean Platelet Volume 6.7 fL (7.4-10.4); Platelet Count 336 10x3/uL (130-400); RBC Distribution Width 13.2 % (11.5-14.5); Red Blood Cell (RBC) Count 4.36 mill/uL (4.70-6.10); White Blood Cell (WBC) Count 8.9 10x3/uL (4.8-10.8)
[2022-07-08 06:58] LABS: Anion Gap 11 mmol/L (10-20); BUN (Urea Nitrogen) 17 mg/dL (8.4-25.7); Calc. Creatinine Clearance 96 mL/min (70-130); Calcium 9.1 mg/dL (7.8-10.44); Carbon Dioxide 23 mmol/L (23-31); Chloride 104 mmol/L (98-107); Estimated GFR 96; Glucose 144 mg/dL (83-110); Potassium 4.3 mmol/L (3.5-5.1); Sodium 134 mmol/L (136-145)
[2022-07-08] MEDS: Aspirin 81 mg Enteric Coated Tablet PO SCH (09:09)
[2022-07-08] MEDS: Ascorbic Acid 500 mg Chewable Tablet PO SCH (09:09)
[2022-07-08] MEDS: glipiZIDE 10 MG TAB PO SCH ×2 (09:09→19:56)
[2022-07-08] MEDS: Zinc Sulfate 220 MG CAP PO SCH (09:09)
[2022-07-08] MEDS: metFORMIN 500 MG TAB PO SCH ×2 (09:09→17:38)
[2022-07-08] MEDS: Amlodipine 10 MG TAB PO SCH (09:14)
[2022-07-08] MEDS: Lisinopril 10 MG TAB PO SCH (11:49)
[2022-07-08] MEDS: HumaLOG 300 UNITS/3 ML VIAL SC PRN (19:55)
[2022-07-08] MEDS: Atorvastatin Calcium 10 MG TAB PO SCH (19:57)
[2022-07-09] MEDS: Ascorbic Acid 500 mg Chewable Tablet PO SCH (08:10)
[2022-07-09] MEDS: Zinc Sulfate 220 MG CAP PO SCH (08:11)
[2022-07-09] MEDS: metFORMIN 500 MG TAB PO SCH ×2 (08:11→18:24)
[2022-07-09] MEDS: glipiZIDE 10 MG TAB PO SCH ×2 (08:11→20:43)
[2022-07-09] MEDS: Amlodipine 10 MG TAB PO SCH (08:12)
[2022-07-09] MEDS: Lisinopril 10 MG TAB PO SCH (08:12)
[2022-07-09] MEDS: Aspirin 81 mg Enteric Coated Tablet PO SCH (08:14)
[2022-07-09] MEDS: Acetaminophen 325 MG TAB PO PRN (08:19)
[2022-07-09] MEDS: Atorvastatin Calcium 10 MG TAB PO SCH (20:43)
[2022-07-10 04:07] VITALS: TEMP 97.4
[2022-07-10] MEDS: metFORMIN 500 MG TAB PO SCH (07:59)
[2022-07-10] MEDS: Lisinopril 10 MG TAB PO SCH (07:59)
[2022-07-10] MEDS: Aspirin 81 mg Enteric Coated Tablet PO SCH (07:59)
[2022-07-10] MEDS: glipiZIDE 10 MG TAB PO SCH (07:59)
[2022-07-10] MEDS: Zinc Sulfate 220 MG CAP PO SCH (07:59)
[2022-07-10] MEDS: Ascorbic Acid 500 mg Chewable Tablet PO SCH (08:00)
[2022-07-10] MEDS: Amlodipine 10 MG TAB PO SCH (08:00)
[2022-07-10 08:07] VITALS: BP 125/71
[2022-07-10] MEDS: Acetaminophen 325 MG TAB PO PRN (09:49)
== END 2022-07-10 12:16 | DRG 56 ==
LOC: T4-B 22:52
PROVIDERS: ADMIT Student in an Organized Health Care Education/Training Program; ATTEND Internal Medicine
PROC: 8E0ZXY6 Isolation (ICD-10-PCS; principal; 2022-06-27)
DX: G20 Parkinson's disease (principal); G93.41 Metabolic encephalopathy; U07.1 COVID-19; E87.1 Hypo-osmolality and hyponatremia; E11.9 Type 2 diabetes mellitus without complications; I10 Essential (primary) hypertension; E87.6 Hypokalemia; G93.89 Other specified disorders of brain; F02.80 Dementia in other diseases classified elsewhere, unspecified severity, without behavioral disturbance, psychotic disturbance, mood disturbance, and anxiety; E78.5 Hyperlipidemia, unspecified; F32.A Depression, unspecified; N13.9 Obstructive and reflux uropathy, unspecified; Z79.82 Long term (current) use of aspirin; Z79.84 Long term (current) use of oral hypoglycemic drugs; Z79.899 Other long term (current) drug therapy; Z87.891 Personal history of nicotine dependence
CPT/HCPCS: 36415; 36416; 70450; 80048; 85025; 85027; 95816; 95819; 95957; J1650; J1815; U0003; U0005